=== PATIENT | female | born 1975 | race Caucasian/White ===

== ENCOUNTER 2018-04-05 12:40 | Emergency (ER) | payer MEDICAID ==
[~2018-04-05] VITALS: Ht 157.5 cm; Wt 58.8 kg
[2018-04-05 12:40] VITALS: BP 138/80
[~2018-04-05 12:40] MED LIST: HYDR-3237 PO; IBUP-1223 PO
[2018-04-05] MEDS ORDERED: IBUPROFEN 200 MG TABLET PO ONE (13:00)
[2018-04-05] MEDS ORDERED: IBUPROFEN 200 MG TABLET ONE (13:39)
== END 2018-04-05 13:48 | disposition home or self-care (01) ==
LOC: ED 13:00
DX: S63.512A Sprain of carpal joint of left wrist, initial encounter (principal); X58.XXXA Exposure to other specified factors, initial encounter; Y93.89 Activity, other specified; Y92.89 Other specified places as the place of occurrence of the external cause; Y99.8 Other external cause status
CPT/HCPCS: 99284